=== PATIENT | female | born 1980 | race Caucasian/White ===

== ENCOUNTER 2023-10-07 06:22 | Emergency (ER) | payer BC ==
[2023-10-07] MEDS ORDERED: Acetaminophen 500 MG TAB ONE (06:42)
[2023-10-07 07:21] LABS: #Basophils 0.1 10x3/uL (0.0-0.2); #Eosinphils 0.3 10x3/uL (0.0-0.5); #Monocytes 0.9 10x3/uL (0.0-1.1); #Neutrophils 17.5 10x3/uL (1.5-8.4); %Basophils 0.5 % (0.0-2.0); %Eosinophils 1.5 % (0.0-6.0); %Lymphocytes 7.5 % (18.0-47.0); %Monocytes 4.2 % (0.0-10.0); %Neutrophils 85.9 % (40.0-75.0); Hematocrit 45.3 % (34.9-44.5); Hemoglobin 14.6 g/dL (12.0-15.5); Mean Corpuscular HGB CONC 32.2 g/dL (32.0-36.0); Mean Corpuscular Hemoglobin 32.1 pg (27.0-33.0); Mean Corpuscular Volume 99.6 fl (81.6-98.3); Mean Platelet Volume 10.4 fl (7.4-10.4); Platelet Count 194 10x3/uL (150-450); RBC Distribution Width 13.9 % (11.5-14.5); Red Blood Cell (RBC) Count 4.55 10x6/uL (3.90-5.03); White Blood Cell (WBC) Count 20.3 10x3/uL (3.5-10.5)
[2023-10-07] MEDS ORDERED: Ipratropium/Albuterol 3 ML NEB ONE (07:25)
[2023-10-07 07:34] LABS: ALT (SGPT) 17 U/L (8-55); AST (SGOT) 23 U/L (5-34); Alkaline Phosphatase 66 U/L (40-110); Anion Gap 16 mmol/L (10-20); BUN (Urea Nitrogen) 6 mg/dL (7.0-18.7); Bilirubin, Total 0.4 mg/dL (0.2-1.2); Calc. Creatinine Clearance 0 mL/min (70-130); Calcium 8.6 mg/dL (7.8-10.44); Carbon Dioxide 14 mmol/L (22-29); Chloride 115 mmol/L (98-107); Estimated GFR 99; Globulin 2.4 g/dL (2.4-3.5); Glucose 124 mg/dL (70-105); Potassium 3.5 mmol/L (3.5-5.1); Protein, Total 6.4 g/dL (6.0-8.3); Sodium 141 mmol/L (136-145)
[2023-10-07 07:46] LABS: SARS-CoV-2 NAA Rapid Test Not Detected (NotDetected)
[2023-10-07] MEDS ORDERED: cefTRIAXone (ROCEPHIN) 1 GM VIAL ONE (07:55)
[2023-10-07] MEDS ORDERED: Magnesium 2 GM/50 ML BAG (IN WATER) ONE (07:55)
[2023-10-07 08:41] LABS: Actual Bicarbonate (HCO3v) 13.4 mEq/L (22-28); Analyzer IN Cardio CS ER; Base Excess -6.8 mEq/L (-2 - +2); Calcium, Ionized (venous) 0.93 mmol/L (1.16-1.32); Chloride (VBG) 117 mmol/L (98-106); Hematocrit-VBG 46 % (36.0-47.0); Hemoglobin (Hb) 15.6 g/dL (11.7-15.5); Potassium (VBG) 3.94 mmol/L (3.70-5.30); Puncture Site Other Site; RapidComm Collect By CBN; Sodium 139 mmol/L (133-146); pH (venous) 7.492 (7.32-7.43)
== END 2023-10-07 10:13 | disposition home or self-care (01) ==
LOC: CSHERS 06:22
DX: J45.901 Unspecified asthma with (acute) exacerbation (principal); J18.9 Pneumonia, unspecified organism; F17.210 Nicotine dependence, cigarettes, uncomplicated; Z20.822 Contact with and (suspected) exposure to COVID-19
CPT/HCPCS: 36415; 71045; 80053; 82805; 85025; 93005; 94644; 94760; 96365; 96366; 96375; J0696; J3475; J7620